=== PATIENT | female | born 1970 | race Caucasian/White ===

== ENCOUNTER 2017-10-09 07:51 | Outpatient (CLI) | payer OTHER | END 2017-10-09 15:30 | disposition home or self-care (01) | LOC: MAMO-SONO 07:51 | DX: Z12.31 Encounter for screening mammogram for malignant neoplasm of breast (principal); N64.4 Mastodynia ==

== ENCOUNTER → 2019-02-04 | Outpatient (CLI) | payer OTHER | END | disposition home or self-care (01) | LOC: MAMO-SONO 07:43 | DX: Z12.31 Encounter for screening mammogram for malignant neoplasm of breast (principal); Z87.898 Personal history of other specified conditions; D43.9 Neoplasm of uncertain behavior of central nervous system, unspecified ==

== ENCOUNTER 2020-05-15 07:36 | Outpatient (CLI) | payer OTHER | END 2020-05-15 07:55 | disposition home or self-care (01) | LOC: MAMO-SONO 07:36 | PROVIDERS: ATTEND Internal Medicine | DX: Z12.31 Encounter for screening mammogram for malignant neoplasm of breast (principal); D49.3 Neoplasm of unspecified behavior of breast; E03.8 Other specified hypothyroidism; N64.59 Other signs and symptoms in breast; E04.2 Nontoxic multinodular goiter ==

== ENCOUNTER 2022-12-29 09:41 | Emergency (ER) | payer OTHER ==
[~2022-12-29] VITALS: Ht 154.9 cm; Wt 43.1 kg
[2022-12-29] MEDS ORDERED: AMLODIPINE-OLM1 EAC2 PO (09:52)
[2022-12-29] MEDS ORDERED: SYNTHROID88 MCG PO (09:52)
[2022-12-29] MEDS ORDERED: ATORVASTATIN CA10 MG PO (09:53)
[2022-12-29] MEDS ORDERED: PROPRANOLOL HCL20 MG PO (09:53)
== END 2022-12-29 11:29 | disposition home or self-care (01) ==
LOC: ER 09:41
DX: R53.81 Other malaise (principal); I10 Essential (primary) hypertension